=== PATIENT | female | born 1995 | race African-American/Black ===

== ENCOUNTER → 2017-12-07 | Emergency (ER) | payer OTHER ==
[~2017-12-07] VITALS: Ht 170.2 cm; Wt 136.1 kg
== END | disposition home or self-care (01) ==
LOC: ER 22:52
DX: L03.311 Cellulitis of abdominal wall (principal)

== ENCOUNTER 2017-12-10 23:18 | Inpatient (IN) | payer OTHER ==
[~2017-12-10] VITALS: Ht 170.2 cm; Wt 133.8 kg
[2017-12-18] MEDS ORDERED: Intestinex CAP PO (17:05)
== END 2017-12-18 18:38 | disposition home or self-care (01) | DRG 581 ==
LOC: ER 23:18 → SEC-K 12-11 09:56 → MEDJ 12-11 09:56 → SEC-K 12-11 14:12 → MEDJ 12-13 02:25 → SEC-K 12-13 02:29 → MEDJ 12-14 05:08 → SEC-K 12-14 06:52 → MEDJ 12-14 10:20
PROC: 0W9F0ZX Drainage of Abdominal Wall, Open Approach, Diagnostic (ICD-10-PCS; principal; 2017-12-11)
PROC: 8E0ZXY6 Isolation (ICD-10-PCS; 2017-12-11)
DX: L02.211 Cutaneous abscess of abdominal wall (principal); L03.311 Cellulitis of abdominal wall; E66.01 Morbid (severe) obesity due to excess calories; B95.62 Methicillin resistant Staphylococcus aureus infection as the cause of diseases classified elsewhere; Z22.322 Carrier or suspected carrier of Methicillin resistant Staphylococcus aureus

== ENCOUNTER 2018-09-09 16:28 | Emergency (ER) | payer OTHER ==
[~2018-09-09] VITALS: Ht 170.2 cm; Wt 145.1 kg
[~2018-09-09 16:28] MED LIST: Intestinex CAP PO
== END 2018-09-09 20:04 | disposition home or self-care (01) ==
LOC: ER 16:28
DX: N93.8 Other specified abnormal uterine and vaginal bleeding (principal)

== ENCOUNTER 2020-05-31 10:30 | Emergency (ER) | payer OTHER ==
[~2020-05-31] VITALS: Ht 170.2 cm; Wt 145.1 kg
[2020-05-31] MEDS ORDERED: TOBRAMYCIN-DEXAM5 ML OP (14:15)
== END 2020-05-31 14:51 | disposition home or self-care (01) ==
LOC: ER 10:30
DX: H10.12 Acute atopic conjunctivitis, left eye (principal)

== ENCOUNTER 2021-05-28 10:42 | Emergency (ER) | payer OTHER ==
[~2021-05-28] VITALS: Ht 170.2 cm; Wt 145.1 kg
[~2021-05-28 10:42] MED LIST changes: +TOBRAMYCIN-DEXAM5 ML OP
[2021-05-28] MEDS ORDERED: INTESTINEX680 M1 PO (11:48)
[2021-05-28] MEDS ORDERED: CLINDAMYCIN HC300 MG PO (11:48)
[2021-05-28] MEDS ORDERED: KETO10TA2 PO (11:48)
== END 2021-05-28 12:06 | disposition home or self-care (01) ==
LOC: ER 10:42
DX: K08.89 Other specified disorders of teeth and supporting structures (principal)

== ENCOUNTER 2021-08-02 19:02 | Emergency (ER) | payer OTHER ==
[~2021-08-02] VITALS: Ht 170.2 cm; Wt 149.7 kg
[~2021-08-02 19:02] MED LIST changes: +CLINDAMYCIN HC300 MG PO; +INTESTINEX680 M1 PO; +KETO10TA2 PO
[2021-08-02] MEDS ORDERED: DICLOFENAC SODI75 MG PO (20:04)
== END 2021-08-02 20:18 | disposition home or self-care (01) ==
LOC: ER 19:02
DX: N94.4 Primary dysmenorrhea (principal)

== ENCOUNTER 2024-09-27 09:05 | Emergency (ER) | payer OTHER ==
[~2024-09-27] VITALS: Ht 172.7 cm; Wt 150.1 kg
[~2024-09-27 09:05] MED LIST changes: +ALLER-TEC10 MG PO; +DICLOFENAC SODI75 MG PO; +FEOSOL325 MG PO; +MEDROLPACK PO; +MUCINEX DM ER1 EAC1 PO; +ZITHROMAX500 MG PO
[2024-09-27] MEDS ORDERED: DEXAMETHASONE SODIUM PHOSPHATE 4 MG/ML VIAL IM ONE (10:00)
[2024-09-27] MEDS ORDERED: GUAIFENESIN/DEXTROMETHORPHAN 10ML BLIST.PACK PO ONE (10:00)
[2024-09-27] MEDS ORDERED: CETIRIZINE HCL 5 MG/5 ML ML PO ONE (10:00)
[2024-09-27 11:04] LABS: HEMATOCRIT 31.1 % (36.0-45.00); MEAN CELL VOLUME 61.3 fL (80.00-100.00); MEAN CORPUSCULAR HEMOGLOBIN 19.7 pg (27.00-32.0); MEAN CORPUSCULAR HGB CONC 32.1 g/dl (32.0-36.0); PLATELET COUNT 313 K/uL (150-450); RED BLOOD COUNT 5.07 M/uL (4.00-6.00); RED CELL DISTRIBUTION WIDTH 20.7 % (11.5-14.5)
[2024-09-27] MEDS ORDERED: FLONASE ALLERG9.9 ML NASAL (11:44)
[2024-09-27] MEDS ORDERED: TUSNEL DM LIQU473 ML PO (11:44)
[2024-09-27] MEDS ORDERED: MONTELUKAST SOD10 MG PO (11:44)
== END 2024-09-27 11:57 | disposition home or self-care (01) ==
LOC: ER 09:07
PROVIDERS: General Practice
DX: J06.9 Acute upper respiratory infection, unspecified (principal); Z20.822 Contact with and (suspected) exposure to COVID-19